=== PATIENT | male | born 1955 | race Caucasian/White ===

== ENCOUNTER → 2022-09-09 | Outpatient (CLI) | payer OTHER | END | disposition home or self-care (01) | LOC: LAB SHORT 14:00 | DX: J02.9 Acute pharyngitis, unspecified (principal) | CPT/HCPCS: 87081 ==

== ENCOUNTER → 2024-07-30 | Outpatient (CLI) | payer MEDICARE, OTHER ==
[2024-07-30 14:43] LABS: BASOPHILS ABSOLUTE AUTO 0.02 K/mm3 (0.00-0.23); BASOPHILS PERCENT AUTO 1 % (0-2); EOSINOPHILS ABSOLUTE AUTO 0.13 K/mm3 (0.00-0.68); EOSINOPHILS PERCENT AUTO 5 % (0-6); Hematocrit 35.7 % (37.0-53.0); Hemoglobin 12.1 g/dL (13.5-17.5); IMMATURE GRAN PERCENT AUTO 0 % (0-1); LYMPHOCYTES PERCENT AUTO 34 % (21-46); MONOCYTES PERCENT AUTO 10 % (4-13); Mean Corpuscular HGB 33.9 pg (26.0-34.0); Mean Corpuscular HGB Conc 33.9 g/dL (31.5-36.5); Mean Corpuscular Volume 100 fL (80-100); Mean Platelet Volume 10.6 fL (9.1-12.4); NEUTROPHILS ABSOLUTE AUTO 1.46 K/mm3 (1.96-9.15); NEUTROPHILS PERCENT AUTO 50 % (41-73); Platelet Count 212 K/mm3 (150-400); RDW Coefficient Variation 13.9 % (11.7-14.2); RDW Standard Deviation 50.9 fL (35.1-46.3); Red Blood Cell Count 3.57 M/mm3 (4.30-5.90); White Blood Cell Count 2.91 K/mm3 (4.00-11.30)
== END | disposition home or self-care (01) ==
LOC: LAB SHORT 13:24 → LAB 13:24
PROVIDERS: Internal Medicine Hematology & Oncology
DX: C90.00 Multiple myeloma not having achieved remission (principal)
CPT/HCPCS: 85025

== ENCOUNTER 2024-09-29 10:38 | Inpatient (IN) | payer MEDICARE, OTHER ==
[~2024-09-29] VITALS: Ht 182.9 cm; Wt 76.5 kg
[2024-09-29] MEDS ORDERED: Ondansetron HCl 2 MG / ML 2ML Vial IV ONE ×2 (10:50→14:25)
[2024-09-29] MEDS ORDERED: Ketorolac Tromethamine 15mg Vial IV ONE (10:50)
[2024-09-29] MEDS ORDERED: HYDROmorphone HCl/Pf 1MG SYR IV ONE ×2 (10:50→14:25)
[2024-09-29 11:25] LABS: BASOPHILS PERCENT AUTO 0 % (0-2); EOSINOPHILS PERCENT AUTO 3 % (0-6); Hemoglobin 12.5 g/dL (13.5-17.5); IMMATURE GRAN ABSOLUTE AUTO 0.02 K/mm3 (0.00-0.10); IMMATURE GRAN PERCENT AUTO 1 % (0-1); LYMPHOCYTES ABSOLUTE AUTO 0.25 K/mm3 (0.84-5.20); LYMPHOCYTES PERCENT AUTO 7 % (21-46); MONOCYTES ABSOLUTE AUTO 0.15 K/mm3 (0.16-1.47); MONOCYTES PERCENT AUTO 4 % (4-13); Mean Corpuscular HGB 32.1 pg (26.0-34.0); Mean Corpuscular HGB Conc 32.9 g/dL (31.5-36.5); Mean Corpuscular Volume 97 fL (80-100); Mean Platelet Volume 10.8 fL (9.1-12.4); NEUTROPHILS ABSOLUTE AUTO 3.03 K/mm3 (1.96-9.15); NEUTROPHILS PERCENT AUTO 85 % (41-73); Platelet Count 133 K/mm3 (150-400); RDW Coefficient Variation 14.2 % (11.7-14.2); RDW Standard Deviation 50.6 fL (35.1-46.3); White Blood Cell Count 3.55 K/mm3 (4.00-11.30)
[2024-09-29 11:28] LABS: Albumin, Blood 2.3 g/dL (3.4-5.0); Albumin/Globulin Ratio 0.3 (0.8-1.8); Bilirubin, Total 0.4 mg/dL (0.1-1.0); Bun/Creatinine Ratio 11.8 (12.0-20.0); Calcium, Blood 8.1 mg/dL (8.5-10.1); Creatinine, Blood 0.51 mg/dL (0.60-1.20); Globulin, Blood 7.3 g/dL (2.2-4.0); Potassium, Blood 4.3 mmol/L (3.5-5.5); Total Protein, Blood 9.6 g/dL (6.4-8.2)
[2024-09-29] MEDS ORDERED: Gabapentin 300 MG Cap PO ONE (14:20)
[2024-09-29] MEDS ORDERED: Morphine Sulfate 30 MG TabCR PO ONE (18:20)
[2024-09-29] MEDS ORDERED: Morphine Sulfate 15 MG TABCR PO ONE (18:35)
[2024-09-29] MEDS ORDERED: Acetaminophen 325 MG TABLET PO PRN (21:55)
[2024-09-29] MEDS ORDERED: Ondansetron HCl 2 MG / ML 2ML Vial IV PRN (22:00)
[2024-09-29] MEDS ORDERED: OxyCODONE HCL 5 MG TAB PO PRN (22:00)
[2024-09-29] MEDS ORDERED: Naloxone HCl 0.4MG / ML 1ML Vial IV PRN (22:00)
[2024-09-29 23:46] VITALS: BP 111/75
[2024-09-30] MEDS ORDERED: Cyclobenzaprine HCl 10 MG Tab PO SCH ×2 (01:28→04:00)
[2024-09-30] MEDS ORDERED: Gabapentin 300 MG Cap PO SCH ×3 (01:29→09:00)
[2024-09-30] MEDS ORDERED: Morphine Sulfate 15 MG TABCR PO SCH ×3 (01:30→09:00)
[2024-09-30 03:21] VITALS: BP 115/82
[2024-09-30 06:06] LABS: BASOPHILS PERCENT AUTO 0 % (0-2); EOSINOPHILS ABSOLUTE AUTO 0.09 K/mm3 (0.00-0.68); EOSINOPHILS PERCENT AUTO 3 % (0-6); Hematocrit 33.1 % (37.0-53.0); IMMATURE GRAN ABSOLUTE AUTO 0.01 K/mm3 (0.00-0.10); IMMATURE GRAN PERCENT AUTO 0 % (0-1); LYMPHOCYTES ABSOLUTE AUTO 0.25 K/mm3 (0.84-5.20); LYMPHOCYTES PERCENT AUTO 8 % (21-46); MONOCYTES ABSOLUTE AUTO 0.27 K/mm3 (0.16-1.47); MONOCYTES PERCENT AUTO 8 % (4-13); Mean Corpuscular HGB 32.4 pg (26.0-34.0); Mean Corpuscular HGB Conc 33.2 g/dL (31.5-36.5); Mean Corpuscular Volume 97 fL (80-100); NEUTROPHILS PERCENT AUTO 81 % (41-73); RDW Coefficient Variation 14.7 % (11.7-14.2); RDW Standard Deviation 52.1 fL (35.1-46.3); White Blood Cell Count 3.27 K/mm3 (4.00-11.30)
[2024-09-30 06:08] LABS: NEUTROPHILS ABSOLUTE AUTO 2.62 K/mm3 (1.96-9.15)
[2024-09-30 06:10] LABS: Mean Platelet Volume 11.3 fL (9.1-12.4); Platelet Count 125 K/mm3 (150-400)
[2024-09-30 06:37] LABS: Albumin, Blood 1.9 g/dL (3.4-5.0); Albumin/Globulin Ratio 0.3 (0.8-1.8); Bilirubin, Total 0.4 mg/dL (0.1-1.0); Bun/Creatinine Ratio 12.4 (12.0-20.0); Calcium, Blood 7.6 mg/dL (8.5-10.1); Creatinine, Blood 0.64 mg/dL (0.60-1.20); Globulin, Blood 6.6 g/dL (2.2-4.0); Magnesium, Blood 2.2 mg/dL (1.6-2.4); Potassium, Blood 3.6 mmol/L (3.5-5.5); Total Protein, Blood 8.5 g/dL (6.4-8.2)
[2024-09-30 07:44] VITALS: BP 107/74
[2024-09-30] MEDS ORDERED: Docusate Sodium 100 MG Cap PO SCH (09:00)
[2024-09-30] MEDS ORDERED: Enoxaparin 40 MG/0.4 ML SYR SC SCH (09:00)
[2024-09-30] MEDS ORDERED: OxyCODONE HCL 5 MG TAB PO PRN (13:05)
[2024-09-30] MEDS ORDERED: Ketorolac Tromethamine 15mg Vial IV PRN (13:20)
[2024-09-30] MEDS ORDERED: MS CONTIN3010 PO (15:15)
[2024-09-30] MEDS ORDERED: CYCL10 PO (15:15)
[2024-09-30] MEDS ORDERED: GABA300 PO (15:16)
[2024-09-30] MEDS ORDERED: ACYC400 PO (15:16)
[2024-09-30] MEDS ORDERED: ASPIR 8181 MG PO (15:17)
[2024-09-30] MEDS ORDERED: Revlimid25 MG PO (15:18)
[2024-09-30] MEDS ORDERED: OXYC5 PO (15:19)
[2024-09-30] MEDS ORDERED: HEMADY20 MG PO (15:22)
[2024-09-30] MEDS ORDERED: ZOLEDRONIC ACID4 M1 (15:24)
--- NOTE | 2024-09-30 16:54 | NUR ---
DC SUMMARY PT DC HOME THIS SHIFT. DC INSTRUCTION GONE OVER WITH PT AND PT WHOM BOTH STATED UNDERSTANDING. PT WAS GIVEN A HARD SCRIPT FOR OXYCODONE AND WAS PLACED IN DC FOLDER. PT WAS ESCORTED OUT TO PRIVATE VEHICLE VIA WHEELCHAIR BY KIMMY.
== END 2024-09-30 16:40 | disposition home or self-care (01) | DRG 542 ==
LOC: ER 10:38 → ERHOLD 10:39 → MEDS 10:39
PROVIDERS: Emergency Medicine; ADMIT Student in an Organized Health Care Education/Training Program
DX: M84.58XA Pathological fracture in neoplastic disease, other specified site, initial encounter for fracture (principal); J96.01 Acute respiratory failure with hypoxia; E78.5 Hyperlipidemia, unspecified; N40.0 Benign prostatic hyperplasia without lower urinary tract symptoms; T40.2X5A Adverse effect of other opioids, initial encounter; Z88.0 Allergy status to penicillin; Z91.041 Radiographic dye allergy status; Z79.899 Other long term (current) drug therapy; Z79.891 Long term (current) use of opiate analgesic; Z85.79 Personal history of other malignant neoplasms of lymphoid, hematopoietic and related tissues
CPT/HCPCS: 36415; 71045; 80053; 83735; 84484; 85025; 93005; 93010; 94762; 96376; 99285-25; A9270; G0378; J1171; J1650; J1885; J2405